=== PATIENT | male | born 1955 | race Caucasian/White ===

== ENCOUNTER 2020-01-14 12:33 | Inpatient (IN) | payer OTHER ==
[~2020-01-14] VITALS: Ht 180.3 cm; Wt 80.8 kg
[2020-01-14] MEDS ORDERED: ONDANSETRON HCL 4 MG/2 ML VIAL IV ONE ×3 (13:00→17:15)
[2020-01-14] MEDS ORDERED: MORPHINE SULFATE 4 MG/ML SYR/VIAL IV ONE ×2 (13:00→16:45)
[2020-01-14 15:41] LABS: Basophils # (auto) 0 10 ^3/uL (0-0.2); Basophils % (auto) 0.4 % (0.0-2.0); Eosinophils # (auto) 0.1 10 ^3/uL (0-0.8); Eosinophils % (auto) 1.2 % (0.0-7.0); Hematocrit 37.4 % (41.0-53.0); Hemoglobin 12.6 g/dL (13.5-17.5); Lymphocytes # (auto) 3.2 10 ^3/uL (0.4-5.4); Lymphocytes % (auto) 27.3 % (10.0-50.0); Mean Corpuscular Hemoglobin 28.3 pg (28.0-32.0); Mean Corpuscular Hgb Conc. 33.7 g/dL (32.0-36.0); Mean Corpuscular Volume 83.8 fL (80.0-100.0); Monocytes % (auto) 8.1 % (0.0-12.0); Neutrophils # (auto) 7.5 10 ^3/uL (1.6-8.6); Nucleated Red Blood Cells % 0.1 %; Platelet Count (auto) 254 10^3/uL (140-450); Red Blood Cells 4.46 10^6/uL (4.5-5.90); Red Cell Distribution Width 14.2 % (11.8-14.3); White Blood Cell 11.8 10^3/uL (4.4-10.8)
[2020-01-14 15:59] LABS: Albumin 3.7 g/dL (3.4-5.0); Calcium 9.1 mg/dL (8.5-10.1); Magnesium 2.2 mg/dL (1.6-2.6)
[2020-01-14 16:01] LABS: BUN/Creatinine Ratio 18.6
[2020-01-14 16:06] LABS: Bilirubin, Total 0.5 mg/dL (0.2-1.0); Total Protein 7.7 g/dL (6.4-8.2)
[2020-01-14 16:32] LABS: Potassium 2.5 mmol/L (3.5-5.1)
[2020-01-14] MEDS ORDERED: HEPARIN DRIP/D5W 100UNITS/ML 250 ML IV SCH (16:38)
[2020-01-14] MEDS ORDERED: MORPHINE SULF INJ 2 MG/ML SYRINGE 1ML IV PRN (16:45)
[2020-01-14] MEDS ORDERED: POTASSIUM CHL 20MEQ/100ML 100 ML IV ONE (16:45)
[2020-01-14] MEDS ORDERED: NITROGLYCERIN 0.4 MG SL TAB SL PRN (16:45)
[2020-01-14] MEDS ORDERED: HEPARIN SODIUM (PORCINE) 5000 UNITS/ML 1ML VIAL IV ONE (16:45)
[2020-01-14] MEDS ORDERED: MORPHINE SULF INJ 2 MG/ML SYRINGE 1ML IV ONE (17:15)
[2020-01-14] MEDS ORDERED: CLOPIDOGREL BISULFATE 75 MG TAB PO ONE (17:15)
[2020-01-14] MEDS ORDERED: ACETAMINOPHEN 500 MG TAB PO PRN (17:30)
[2020-01-14] MEDS ORDERED: POTASSIUM EFFERVESENT TAB 25 MEQ GT ONE (17:30)
[2020-01-14] MEDS ORDERED: DEXTROSE (50%) 50ML SYRG IV PRN (17:30)
[2020-01-14] MEDS ORDERED: SODIUM CHLORIDE 0.9% 1,000 ML IV ONE (17:30)
[2020-01-14] MEDS ORDERED: traMADol HCL 50 MG TAB PO PRN (17:30)
[2020-01-14] MEDS ORDERED: NITROGLYCERIN 50MG/250ML 250 ML IV SCH (17:30)
[2020-01-14 18:40] LABS: INR 1.01 (0.9-1.15); Partial Thromboplastin Time 25.9 sec (23.0-31.2)
[2020-01-14] MEDS: SOD CHL 0.9%/ KCL 40MEQ 1,000 ML IV SCH (20:02)
[2020-01-14] MEDS: MORPHINE SULF INJ 2 MG/ML SYRINGE 1ML IV PRN (21:10)
[2020-01-14] MEDS: ACCU-CHEK COMFORT CURVE STRIP VI SCH (22:00)
[2020-01-14] MEDS ORDERED: METOPROLOL TARTRATE 25 MG TAB PO SCH (22:00)
[2020-01-14] MEDS ORDERED: PREG100C PO (22:25)
[2020-01-14] MEDS ORDERED: HYDR-531 PO (22:26)
[2020-01-14] MEDS ORDERED: FURO1TAB32 PO (22:26)
[2020-01-14] MEDS ORDERED: HYDROcodone-ACET 10/325MG TAB PO ONE (23:45)
[2020-01-14] MEDS ORDERED: PREGABALIN 25 MG CAP PO ONE (23:45)
[2020-01-15 01:47] LABS: INR 1.06 (0.9-1.15)
[2020-01-15] MEDS: SOD CHL 0.9%/ KCL 40MEQ 1,000 ML IV SCH (03:10)
[2020-01-15] MEDS: PREGABALIN 25 MG CAP PO SCH ×3 (05:54→21:17)
[2020-01-15] MEDS: ACCU-CHEK COMFORT CURVE STRIP VI SCH ×4 (06:44→22:00)
[2020-01-15 07:11] LABS: Basophils # (auto) 0 10 ^3/uL (0-0.2); Basophils % (auto) 0.2 % (0.0-2.0); Eosinophils # (auto) 0.2 10 ^3/uL (0-0.8); Eosinophils % (auto) 1.3 % (0.0-7.0); Hematocrit 37.1 % (41.0-53.0); Hemoglobin 12.4 g/dL (13.5-17.5); Lymphocytes # (auto) 2.8 10 ^3/uL (0.4-5.4); Lymphocytes % (auto) 19.4 % (10.0-50.0); Mean Corpuscular Hemoglobin 28.3 pg (28.0-32.0); Mean Corpuscular Hgb Conc. 33.4 g/dL (32.0-36.0); Mean Corpuscular Volume 84.8 fL (80.0-100.0); Monocytes # (auto) 0.9 10 ^3/uL (0-1.3); Monocytes % (auto) 6.5 % (0.0-12.0); Neutrophils # (auto) 10.4 10 ^3/uL (1.6-8.6); Neutrophils % (auto) 72.6 % (37.0-80.0); Platelet Count (auto) 235 10^3/uL (140-450); Red Blood Cells 4.38 10^6/uL (4.5-5.90); Red Cell Distribution Width 14.3 % (11.8-14.3); White Blood Cell 14.4 10^3/uL (4.4-10.8)
[2020-01-15 07:33] LABS: Albumin 3.5 g/dL (3.4-5.0); Anion Gap 6 (5-15); Blood Urea Nitrogen 22 mg/dL (7-18); Calcium 8.5 mg/dL (8.5-10.1); Carbon Dioxide 33 mmol/L (21-32); Chloride 93 mmol/L (98-107); Glucose 154 mg/dL (74-106); Potassium 3.1 mmol/L (3.5-5.1); Sodium 132 mmol/L (136-145)
[2020-01-15 07:41] LABS: Alanine Aminotransferase 63 U/L (16-61); Alkaline Phosphatase 44 U/L (45-117); Aspartate Aminotransferase 194 U/L (15-37); BUN/Creatinine Ratio 18.3; Bilirubin, Total 0.5 mg/dL (0.2-1.0); Cholesterol 208 mg/dL (< 200); GFR African American 79 mL/min; GFR Non-African American 65 mL/min; HDL Cholesterol 31 mg/dL (40-59); Total Protein 7.1 g/dL (6.4-8.2); Triglycerides 502 mg/dL (< 150)
[2020-01-15] MEDS ORDERED: LIDOCAINE 2%HCL (LOCAL ANESTH.) INJ 20ML MDV ONE (08:16)
[2020-01-15] MEDS ORDERED: IOHEXOL 350 MG/ML 100ML IJ ONE (08:17)
[2020-01-15] MEDS ORDERED: ANGIOMAX 250 MG VIAL IV ONE (08:34)
[2020-01-15] MEDS ORDERED: ATROPINE SULF 1 MG/10ml SYR ONE (08:34)
[2020-01-15] MEDS ORDERED: MIDAZOLAM HCL 1MG/1ML-2 ML VIAL ONE (08:35)
[2020-01-15] MEDS ORDERED: fentaNYL CITRATE 100 MCG/2 ML VL ONE (08:35)
[2020-01-15] MEDS ORDERED: EPINEPHrine HCL 1 MG/10 ML SYRG ONE (08:35)
[2020-01-15] MEDS ORDERED: SODIUM CHL 0.9% 0 ML ONE (08:35)
[2020-01-15] MEDS ORDERED: EPTIFIBATIDE INJ (2MG/ML) 10ML VIAL IV ONE (08:36)
[2020-01-15] MEDS ORDERED: ACETAMINOPHEN 500 MG TAB PO PRN (09:45)
[2020-01-15] MEDS ORDERED: HYDROcodone-ACET 5/325MG TAB PO PRN (09:45)
[2020-01-15] MEDS ORDERED: NITROGLYCERIN 0.4 MG SL TAB SL PRN (09:45)
[2020-01-15] MEDS ORDERED: MORPHINE SULF INJ 2 MG/ML SYRINGE 1ML IV PRN (09:45)
[2020-01-15] MEDS ORDERED: CLOPIDOGREL BISULFATE 75 MG TAB ONE (09:57)
[2020-01-15] MEDS: RIVAROXABAN 10 MG TAB PO SCH ×2 (10:00→17:44)
[2020-01-15] MEDS: CARVEDILOL 12.5 MG TAB PO SCH ×2 (10:00→21:18)
[2020-01-15] MEDS: LISINOPRIL 5 MG TAB PO SCH (10:00)
[2020-01-15] MEDS: CLOPIDOGREL BISULFATE 75 MG TAB PO SCH (10:00)
[2020-01-15] MEDS: POTASSIUM CHL 20MEQ/100ML 100 ML IV SCH ×2 (10:30→12:58)
[2020-01-15] MEDS: HYDROcodone-ACET 10/325MG TAB PO SCH ×2 (11:40→21:18)
[2020-01-15] MEDS ORDERED: AZITHROMYCIN 250 MG TAB PO ONE (12:00)
[2020-01-15] MEDS ORDERED: DEXTROSE (50%) 50ML SYRG IV PRN (12:00)
[2020-01-15] MEDS ORDERED: METO2.5T11 PO (12:11)
[2020-01-15] MEDS ORDERED: SPIR25TA8 PO (12:11)
[2020-01-15] MEDS: ASPirin 81 mg TAB PO SCH (13:04)
[2020-01-15] MEDS: guaiFENesin-DM 100/10mg/5ml SYR PO SCH ×3 (13:05→21:16)
[2020-01-15] MEDS: MORPHINE SULF INJ 2 MG/ML SYRINGE 1ML IV PRN ×2 (14:16→20:06)
--- NOTE | 2020-01-15 15:20 | NUR ---
01/15/20 Mary Spoke with Camille wallis at [place] and gave in patient stay authorization for 01/19/20 @[facility] #[id number]
--- NOTE | 2020-01-15 15:40 | NUR ---
Report received MICHEAL VAZQUEZ brought to bed 270A following Left Cardiac catheterization, on bus monitor and portable oxygen. Patient transferred to unit bed, connected to systems coordinator and oxygen. Catheterization site assessed for any bleeding, redness or swelling. Pedal pulses on affected leg assessed for positive tissue perfusion. Patient instructed on need to notify staff immediately if any pain, burning or wetness to site, and any lower back pain. Patient educated on new cardiac medications. All questions and concerns addressed, patient verbalized understanding of all education and instruction.
[2020-01-15 16:00] VITALS: BP 95/69
--- NOTE | 2020-01-15 16:00 | NUR ---
RN Communication Per MD Lawrence BMP labs to be drawn at 1800. Order has been placed in [facility]. Per if Potassium levels are less than 3.5 place order for 25 meq Potassium effervescent tablet PO one time order.
[2020-01-15] MEDS: InsuLIN REG 1unit/0.01ml Soln (100units/ml) SC SCH ×2 (17:45→21:42)
[2020-01-15] MEDS: FUROSEMIDE 40 MG/4 ML VIAL IV SCH (17:45)
--- NOTE | 2020-01-15 19:25 | NUR ---
Opening note Assumed care of patient, Patient is alert and orientated x4. Bed locked in lowest position, Side rails up x2. Patient is resting in bed. Patient states he has SOB. Patent is on 4L nasal canula, saturation is 93%. Call light within reach, will continue to monitor.
--- NOTE | 2020-01-15 20:00 | NUR ---
Checked right groin dressing Dressing to right groin is dry and intact. No blood or swelling noted at site. Will continue to monitor.
[2020-01-15 20:25] LABS: BUN/Creatinine Ratio 15.7; Calcium 8.1 mg/dL (8.5-10.1)
[2020-01-15] MEDS ORDERED: POTASSIUM EFFERVESENT TAB 25 MEQ PO ONE (20:45)
[2020-01-15] MEDS: SPIRONOLACTONE 25 MG TAB PO SCH (21:17)
--- NOTE | 2020-01-15 22:00 | NUR ---
Joy Hospitalist Joy hospitalist Patient has SOB requesting breathing treatments. Assessed patient, patient has crackles, on 4L nasal canula saturation 94% Patient states he has been demanding breathing treatments and nothing has been done. Reassess blood pressure 100/55. Hr 92. Awaiting call back. Will continue to monitor.
[2020-01-15 22:10] VITALS: BP 88/64
--- NOTE | 2020-01-15 22:35 | NUR ---
Hospitalist paged back New order received, will follow through with orders. Call light within reach, Will continue to monitor.
[2020-01-15] MEDS: ALBUTEROL SULF 2.5 MG/0.5ML(0.5%) NEB SOLN NEB PRN (22:51)
--- NOTE | 2020-01-15 22:52 | NUR ---
RT at bedside. RT giving breathing treatment at this time. Will continue to monitor.
[2020-01-15 23:00] VITALS: BP 94/62
--- NOTE | 2020-01-15 23:00 | NUR ---
SOB relieved Patient received breathing treatment. No SOB or distress noted at this time. Patient is very tired and wants to go to sleep now. Patient states "finally got relief and can breath better." No other symptoms reported. Call light with in reach, Will continue to monitor.
[2020-01-16 01:24] VITALS: BP 94/58
--- NOTE | 2020-01-16 01:25 | NUR ---
Patient rounding Patient is asleep in bed. Chest is evenly rising, no sob or signs of distress noted. Will continue to monitor.
--- NOTE | 2020-01-16 01:45 | NUR ---
Patient requesting sleeping pill Patient states he slept for a while. but needs to get better sleep, wants his sleeping pill. Will medicate per md orders. No sob or distress noted at this time. Call light within reach, Will continue to monitor.
[2020-01-16] MEDS: TEMAZEPAM 15 MG CAP PO PRN (01:46)
[2020-01-16 05:02] VITALS: BP 96/63
--- NOTE | 2020-01-16 05:25 | NUR ---
Family called After password verification patients daughter Davina called for an update. All questions answered. Will continue to monitor patient.
--- NOTE | 2020-01-16 06:12 | NUR ---
RESPIRATORY NOTE: HR 92, RR 18, SPO2 96% ON 3 L NC, BS CLEAR AND DIMINISHED. PRN MED NEB TX NOT INDICATED AT THIS TIME.NO SIGNS OR SYMPTOMS OF RESPIRATORY DISTRESS NOTED. RN AT BEDSIDE.
[2020-01-16] MEDS: FUROSEMIDE 40 MG/4 ML VIAL IV SCH ×2 (06:22→18:02)
[2020-01-16] MEDS: guaiFENesin-DM 100/10mg/5ml SYR PO SCH ×4 (06:23→21:41)
[2020-01-16] MEDS: PREGABALIN 25 MG CAP PO SCH ×3 (06:23→21:40)
[2020-01-16] MEDS: ACCU-CHEK COMFORT CURVE STRIP VI SCH ×4 (06:26→21:41)
[2020-01-16] MEDS: InsuLIN REG 1unit/0.01ml Soln (100units/ml) SC SCH ×4 (07:03→21:45)
[2020-01-16 07:04] LABS: Basophils # (auto) 0 10 ^3/uL (0-0.2); Basophils % (auto) 0.2 % (0.0-2.0); Eosinophils # (auto) 0 10 ^3/uL (0-0.8); Hematocrit 35.5 % (41.0-53.0); Hemoglobin 11.9 g/dL (13.5-17.5); Lymphocytes # (auto) 1.9 10 ^3/uL (0.4-5.4); Lymphocytes % (auto) 9.9 % (10.0-50.0); Mean Corpuscular Hemoglobin 28.7 pg (28.0-32.0); Mean Corpuscular Hgb Conc. 33.4 g/dL (32.0-36.0); Mean Corpuscular Volume 85.9 fL (80.0-100.0); Monocytes # (auto) 1.6 10 ^3/uL (0-1.3); Monocytes % (auto) 8.5 % (0.0-12.0); Neutrophils # (auto) 15.4 10 ^3/uL (1.6-8.6); Neutrophils % (auto) 81.4 % (37.0-80.0); Platelet Count (auto) 220 10^3/uL (140-450); Red Blood Cells 4.14 10^6/uL (4.5-5.90); Red Cell Distribution Width 14.7 % (11.8-14.3); White Blood Cell 18.9 10^3/uL (4.4-10.8)
[2020-01-16 07:16] LABS: Albumin 3.4 g/dL (3.4-5.0); Calcium 8.3 mg/dL (8.5-10.1); Potassium 3.2 mmol/L (3.5-5.1)
--- NOTE | 2020-01-16 07:20 | NUR ---
Opening note Assumed care of patient, Patient is alert and orientated x4. Bed locked in lowest position, Side rails up x2. Patient is resting in bed. Patient states he has SOB. Patent is on 4L nasal canula, saturation is 95%. Call light within reach, will continue to monitor.
--- NOTE | 2020-01-16 07:21 | NUR ---
Closing note endorsed care to day shift RN
[2020-01-16 07:51] LABS: BUN/Creatinine Ratio 18.5; Bilirubin, Total 1.2 mg/dL (0.2-1.0)
--- NOTE | 2020-01-16 07:55 | NUR ---
Critical Troponin Critical troponin of 58.70 ng/mL received. Hospitalist was paged and made aware at this time. No new orders received.
[2020-01-16 09:00] VITALS: BP_SYST 110; BP_SYST 97; BP_DIAS 82; BP_DIAS 89
[2020-01-16] MEDS ORDERED: metOLazone 5 MG TAB PO SCH (10:00)
[2020-01-16] MEDS: CARVEDILOL 12.5 MG TAB PO SCH (10:00)
[2020-01-16] MEDS ORDERED: AZITHROMYCIN 250 MG TAB PO SCH (10:00)
[2020-01-16] MEDS: ASPirin 81 mg TAB PO SCH (10:14)
[2020-01-16] MEDS: HYDROcodone-ACET 10/325MG TAB PO SCH ×2 (10:14→21:40)
[2020-01-16] MEDS: LISINOPRIL 5 MG TAB PO SCH (10:15)
[2020-01-16] MEDS: CLOPIDOGREL BISULFATE 75 MG TAB PO SCH (10:15)
--- NOTE | 2020-01-16 10:15 | NUR ---
Daily weight Patient weighted at this time by bed after it was Zeroed out. Weight at this time 194 lbs.
[2020-01-16] MEDS ORDERED: metOLazone 5 MG TAB PO ONE (11:15)
[2020-01-16] MEDS ORDERED: NITR0.4D3 TD (11:17)
[2020-01-16] MEDS ORDERED: DOCU-94 PO (11:17)
[2020-01-16] MEDS ORDERED: POTA10TA51 PO (11:17)
[2020-01-16] MEDS ORDERED: CARV25TA PO (11:17)
[2020-01-16] MEDS ORDERED: LISI2.5T47 PO (11:17)
[2020-01-16] MEDS: ALBUTEROL SULF 2.5 MG/0.5ML(0.5%) NEB SOLN NEB PRN (11:48)
[2020-01-16 12:50] VITALS: BP 98/62
--- NOTE | 2020-01-16 13:00 | NUR ---
Urine sample collected and sent via State system at this time.
[2020-01-16 13:52] LABS: Urine WBC None Seen /hpf (0 - 3)
[2020-01-16 14:06] LABS: Urine Bacteria NONE SEEN /hpf (None Seen); Urine Blood Negative /uL (Negative); Urine Hyaline Cast FEW /lpf (0 - 2); Urine Mucus FEW (None Seen); Urine Specific Gravity 1.021 (1.001-1.035)
[2020-01-16 14:11] LABS: Alcohol, Urine < 3.0 mg/dL (0-10); Amphetamine Screen, Urine NEGATIVE (NEGATIVE); Barbiturate Scree,Urine NEGATIVE (NEGATIVE); Benzodiazephine Screen, Urine POSITIVE (NEGATIVE); Cannabinoid Screen, Urine NEGATIVE (NEGATIVE); Cocaine Screen, Urine NEGATIVE (NEGATIVE); Opiate Scree,Urine POSITIVE (NEGATIVE); Phencyclidine Screen, Urine NEGATIVE (NEGATIVE)
[2020-01-16 16:48] VITALS: BP 111/64
--- NOTE | 2020-01-16 17:00 | NUR ---
Elevated temperature Patient running a low grade fever of 100.0 Fahrenheit. Cooling measured initiated at this time. Will reassess in an hour.
--- NOTE | 2020-01-16 18:40 | NUR ---
Re: fever Temperature reassessment was 99.8 Fahrenheit. Cooling measures still in place. Will continue to monitor. No additional interventions at this time. Addendum: 01/16/20 at 1841 by DEONTE SORIANO RN RN temperature reassessed at 1810
--- NOTE | 2020-01-16 19:00 | NUR ---
Respiratory note: ASSESSMENT FOR PRN MED NEB TX, HR 95, SPO2 95% ON 2L NC, RR 20, BS DIMINISHED. PT IN NO RESPIRATORY DISTRESS, MED NEB TX NOT INDICATED. PT AWARE TO HAVE TO RT PAGED OF NEEDED, WILL CONTINUE TO MONITOR.
--- NOTE | 2020-01-16 19:20 | NUR ---
Opening note assumed care of patient patient is alert and orientated x4. no sob or distress noted at this time. Bed locked in lowest position, side rails up x2. poc reviewed, call light within reach will continue to monitor.
[2020-01-16] MEDS: SPIRONOLACTONE 25 MG TAB PO SCH (21:40)
[2020-01-16] MEDS: CARVEDILOL 3.125 MG TAB PO SCH (21:42)
[2020-01-16 22:07] VITALS: BP 95/62
--- NOTE | 2020-01-16 23:40 | NUR ---
Rt paged Patient feels out of breath and requesting a breathing treatment. notified RT will continue care
--- NOTE | 2020-01-16 23:50 | NUR ---
RT at bedside Rt giving breathing treatment, patient states he feels better. will continue care
[2020-01-17 04:46] VITALS: BP 97/63
[2020-01-17 05:41] LABS: Basophils # (auto) 0 10 ^3/uL (0-0.2); Basophils % (auto) 0.1 % (0.0-2.0); Eosinophils # (auto) 0 10 ^3/uL (0-0.8); Eosinophils % (auto) 0.1 % (0.0-7.0); Hematocrit 32.4 % (41.0-53.0); Hemoglobin 11.2 g/dL (13.5-17.5); Lymphocytes # (auto) 2.6 10 ^3/uL (0.4-5.4); Lymphocytes % (auto) 13.9 % (10.0-50.0); Mean Corpuscular Hemoglobin 29.1 pg (28.0-32.0); Mean Corpuscular Hgb Conc. 34.6 g/dL (32.0-36.0); Mean Corpuscular Volume 84.1 fL (80.0-100.0); Monocytes # (auto) 1.2 10 ^3/uL (0-1.3); Monocytes % (auto) 6.3 % (0.0-12.0); Neutrophils # (auto) 15.1 10 ^3/uL (1.6-8.6); Neutrophils % (auto) 79.6 % (37.0-80.0); Platelet Count (auto) 210 10^3/uL (140-450); Red Blood Cells 3.85 10^6/uL (4.5-5.90); Red Cell Distribution Width 14.7 % (11.8-14.3)
[2020-01-17] MEDS: PREGABALIN 25 MG CAP PO SCH ×3 (05:55→22:00)
[2020-01-17] MEDS: FUROSEMIDE 40 MG/4 ML VIAL IV SCH (05:55)
[2020-01-17] MEDS: ACCU-CHEK COMFORT CURVE STRIP VI SCH ×4 (05:56→21:49)
[2020-01-17 05:57] LABS: Calcium 8.7 mg/dL (8.5-10.1)
[2020-01-17 05:59] LABS: BUN/Creatinine Ratio 25.6
[2020-01-17] MEDS: guaiFENesin-DM 100/10mg/5ml SYR PO SCH (06:09)
[2020-01-17] MEDS: InsuLIN REG 1unit/0.01ml Soln (100units/ml) SC SCH ×4 (06:09→22:23)
[2020-01-17 06:13] LABS: Potassium 2.5 mmol/L (3.5-5.1)
--- NOTE | 2020-01-17 06:20 | NUR ---
critical lab value critical lab value potassium 2.5. will inform hospitalist continue care
--- NOTE | 2020-01-17 06:30 | NUR ---
Paged hospitalist Paged hospitalist, awaiting call back. continue care
--- NOTE | 2020-01-17 07:05 | NUR ---
Hospitalist paged back new orders received regarding potassium, will carry out new orders.
[2020-01-17] MEDS ORDERED: POTASSIUM CHL 20 Meq TABLET PO ONE ×2 (07:15→10:45)
--- NOTE | 2020-01-17 07:15 | NUR ---
CLOSING NOTE endorsed care to day shift RN
[2020-01-17 09:15] VITALS: BP 110/74
[2020-01-17] MEDS: CLOPIDOGREL BISULFATE 75 MG TAB PO SCH (09:59)
[2020-01-17] MEDS: HYDROcodone-ACET 10/325MG TAB PO SCH (09:59)
[2020-01-17] MEDS: ASPirin 81 mg TAB PO SCH (09:59)
[2020-01-17] MEDS: metOLazone 5 MG TAB PO SCH (10:00)
[2020-01-17] MEDS: CARVEDILOL 3.125 MG TAB PO SCH ×2 (10:00→22:00)
[2020-01-17] MEDS ORDERED: DOCUSATE SOD 100 MG CAP PO PRN (10:45)
[2020-01-17] MEDS ORDERED: cefTRIAXone 1GM/50ML D5W 50 ML IV ONE (10:45)
[2020-01-17] MEDS ORDERED: DOCUSATE SOD 100 MG CAP PO ONE (10:45)
[2020-01-17] MEDS: guaiFENesin-DM 100/10mg/5ml SYR PO PRN (11:08)
--- NOTE | 2020-01-17 12:41 | NUR ---
Nutrition Assessment Notes Please refer to link for full assessment notes. Est Energy needs: 4535-8333 kcals (20-23 kcal/kgBW) Est Protein needs: 64-80 gms/day (0.8-1.0 gm/kgBW) Will continue to monitor and reassess prn. Addendum: 01/17/20 at [address] Amended: Links added.
[2020-01-17 13:00] VITALS: BP 103/56
[2020-01-17] MEDS: Ensure HIGH Protein Chocolate 8oz Bottle PO SCH ×2 (13:59→17:28)
[2020-01-17 16:06] VITALS: BP 90/46
--- NOTE | 2020-01-17 17:00 | NUR ---
Direct Admit Note MICHEAL VAZQUEZ admitted to Telemetry/MS unit as a direct admit per MD order. Patient oriented to EFRA OLIVEROS, primary RN, unit, room, bed, and unit policies regarding patient care and visiting hours. Patient now on continuous telemetry monitoring, tele box # 62 and telemetry reading on arrival to unit is . Patient placed on bedside oxygen, weighed by bed scale and encouraged to call if they need something. All questions and concerns addressed, patient verbalized understanding. MD notified of patients arrival and admit orders received. Addendum: 01/17/20 at 1730 by EFRA OLIVEROS RN wrong patient
--- NOTE | 2020-01-17 19:45 | NUR ---
Opening Shift Note Assumed care of patient, awake and alert. No S/S of distress/SOB or pain noted. Patient requested breathing treatment, to page RT. Instructed on POC and to call for assist PRN. Bed is in lowest locked position with bed rails up x2 and call light is within reach of the patient.
--- NOTE | 2020-01-17 20:03 | NUR ---
I WAS PAGED TO BEDSIDE FOR PT REQUESTING PRN MED NEB TX. NO DISTRESS NOTED. PRN TX ADMINISTERED W/ NO ISSUES. Addendum: 01/17/20 at 2037 by HAUNG KAUR RT Amended: Links added.
[2020-01-17] MEDS: ALBUTEROL SULF 2.5 MG/0.5ML(0.5%) NEB SOLN NEB PRN (20:35)
[2020-01-17] MEDS: SPIRONOLACTONE 25 MG TAB PO SCH (22:00)
[2020-01-17 22:03] VITALS: BP 101/68
[2020-01-17] MEDS: PROMETHAZINE HCL 25 MG/ML 1ML IV PRN (22:19)
--- NOTE | 2020-01-17 22:49 | NUR ---
PATIENT REFUSED EVENING MEDICATIONS: Patient refused evening medications stating "Im feeling nauseous I dont think I can keep any of these medications down." Gave patient nausea medication and came back to attempt again to give patient medications. Patient was only able to take Aldactone PO but refused the rest of PO medications at this time stating "I wont be able to keep them down. Im good for tonight." Educated the patient about taking medication but refused at this time.
[2020-01-18] MEDS: ALBUTEROL SULF 2.5 MG/0.5ML(0.5%) NEB SOLN NEB PRN (02:57)
[2020-01-18 05:06] VITALS: BP 110/73
[2020-01-18 05:29] LABS: Basophils # (auto) 0.1 10 ^3/uL (0-0.2); Basophils % (auto) 0.6 % (0.0-2.0); Eosinophils # (auto) 0 10 ^3/uL (0-0.8); Eosinophils % (auto) 0.3 % (0.0-7.0); Hematocrit 32.5 % (41.0-53.0); Hemoglobin 11.1 g/dL (13.5-17.5); Lymphocytes # (auto) 2.7 10 ^3/uL (0.4-5.4); Lymphocytes % (auto) 15.5 % (10.0-50.0); Mean Corpuscular Hemoglobin 28.9 pg (28.0-32.0); Mean Corpuscular Hgb Conc. 34.1 g/dL (32.0-36.0); Mean Corpuscular Volume 84.6 fL (80.0-100.0); Monocytes % (auto) 5.8 % (0.0-12.0); Neutrophils # (auto) 13.3 10 ^3/uL (1.6-8.6); Neutrophils % (auto) 77.8 % (37.0-80.0); Nucleated Red Blood Cells % 0.1 %; Platelet Count (auto) 218 10^3/uL (140-450); Red Blood Cells 3.85 10^6/uL (4.5-5.90); Red Cell Distribution Width 14.4 % (11.8-14.3); White Blood Cell 17.1 10^3/uL (4.4-10.8)
[2020-01-18 05:47] LABS: Calcium 9.4 mg/dL (8.5-10.1); Magnesium 2.6 mg/dL (1.6-2.6)
[2020-01-18] MEDS: PREGABALIN 25 MG CAP PO SCH ×3 (06:00→22:00)
[2020-01-18] MEDS: FUROSEMIDE 40 MG/4 ML VIAL IV SCH (06:17)
[2020-01-18] MEDS: ACCU-CHEK COMFORT CURVE STRIP VI SCH ×4 (06:17→22:00)
[2020-01-18] MEDS: PROMETHAZINE HCL 25 MG/ML 1ML IV PRN ×2 (06:25→23:43)
[2020-01-18] MEDS: InsuLIN REG 1unit/0.01ml Soln (100units/ml) SC SCH ×4 (06:37→22:00)
[2020-01-18] MEDS: Ensure HIGH Protein Chocolate 8oz Bottle PO SCH ×3 (08:13→17:14)
[2020-01-18 08:40] VITALS: BP 104/71
[2020-01-18] MEDS ORDERED: POTASSIUM CHL 20 Meq TABLET PO ONE (08:45)
[2020-01-18] MEDS: metOLazone 5 MG TAB PO SCH (09:31)
[2020-01-18] MEDS: CLOPIDOGREL BISULFATE 75 MG TAB PO SCH (09:31)
[2020-01-18] MEDS: cefTRIAXone 1GM/50ML D5W 50 ML IV SCH (09:31)
[2020-01-18] MEDS: CARVEDILOL 3.125 MG TAB PO SCH ×2 (09:32→22:00)
[2020-01-18] MEDS: ASPirin 81 mg TAB PO SCH (09:32)
[2020-01-18] MEDS ORDERED: POTASSIUM CHLORIDE 40 MEQ, LIDOCAINE 1% (LOCAL ANESTH.) 4 ML in SODIUM CHL 0.9% 100 ML IV ONE (11:30)
--- NOTE | 2020-01-18 12:00 | NUR ---
Spoke to [employer] regarding Ensure has not been sent, per [employer] cannot send because patient is on CCHO.
[2020-01-18 13:00] VITALS: BP 104/66
[2020-01-18] MEDS: DOBUTamine 1000MCG/ML 250 ML IV SCH (13:49)
--- NOTE | 2020-01-18 14:02 | NUR ---
ASSESSED PT FOR PRN MED NEB, PT RESTING, SITTING ON CHAIR ON 1L NC WITH NO DISTRESS NOTED. NO INDICATION FOR PRN MED NEB AT THIS TIME.
[2020-01-18 16:57] VITALS: BP 96/70
[2020-01-18 19:01] VITALS: BP 96/70
--- NOTE | 2020-01-18 19:45 | NUR ---
Opening Shift Note Assumed care of patient, awake and alert. No S/S of distress/SOB or pain noted, sitting in chair. Instructed on POC and to call for assist PRN. Call light is within reach of the patient.
[2020-01-18] MEDS: guaiFENesin-DM 100/10mg/5ml SYR PO PRN (19:48)
[2020-01-18 22:00] VITALS: BP 110/67
[2020-01-18] MEDS: SPIRONOLACTONE 25 MG TAB PO SCH (22:29)
[2020-01-19] MEDS: HYDROcodone-ACET 10/325MG TAB PO PRN ×2 (02:33→22:27)
[2020-01-19 05:00] VITALS: BP 104/71
[2020-01-19 06:38] LABS: Basophils # (auto) 0 10 ^3/uL (0-0.2); Basophils % (auto) 0.1 % (0.0-2.0); Eosinophils # (auto) 0 10 ^3/uL (0-0.8); Eosinophils % (auto) 0.2 % (0.0-7.0); Hemoglobin 11.1 g/dL (13.5-17.5); Lymphocytes # (auto) 1.9 10 ^3/uL (0.4-5.4); Lymphocytes % (auto) 14.6 % (10.0-50.0); Mean Corpuscular Hemoglobin 29.3 pg (28.0-32.0); Mean Corpuscular Hgb Conc. 34.7 g/dL (32.0-36.0); Mean Corpuscular Volume 84.2 fL (80.0-100.0); Monocytes # (auto) 0.8 10 ^3/uL (0-1.3); Monocytes % (auto) 6.3 % (0.0-12.0); Neutrophils % (auto) 78.8 % (37.0-80.0); Nucleated Red Blood Cells % 0.1 %; Platelet Count (auto) 225 10^3/uL (140-450); Red Cell Distribution Width 14.9 % (11.8-14.3); White Blood Cell 12.7 10^3/uL (4.4-10.8)
[2020-01-19] MEDS: PREGABALIN 25 MG CAP PO SCH ×3 (06:59→22:26)
[2020-01-19] MEDS: ACCU-CHEK COMFORT CURVE STRIP VI SCH ×4 (06:59→22:26)
[2020-01-19] MEDS: FUROSEMIDE 40 MG/4 ML VIAL IV SCH ×2 (07:00→11:45)
[2020-01-19 07:04] LABS: BUN/Creatinine Ratio 28.9
[2020-01-19] MEDS: InsuLIN REG 1unit/0.01ml Soln (100units/ml) SC SCH ×4 (07:06→22:00)
--- NOTE | 2020-01-19 07:10 | NUR ---
ASSESSED PT FOR PRN MED NEB. PT ON 1L NC WITH NO DISTRESS NOTED. NO INDICATION FOR PRN MED NEB AT THIS TIME.
[2020-01-19 07:14] LABS: Potassium 2.5 mmol/L (3.5-5.1)
--- NOTE | 2020-01-19 07:14 | NUR ---
Critical Lab Omi held, Paged hospitalist: Received call from lab stating patient had critical lab value of 2.5 potassium. Lasix held for AM due to contraindication of potassium lab value. Hospitalist paged at this time to report critical lab. To notify day shift nurse.
--- NOTE | 2020-01-19 07:15 | NUR ---
Closing note: Patient resting in bed with breaths even and unlabored. Notified of critical potassium lab value and notified that hospitalist had been paged and waiting for call back. Care endorsed to day shift nurse.
[2020-01-19] MEDS: Ensure HIGH Protein Chocolate 8oz Bottle PO SCH ×3 (08:00→18:00)
[2020-01-19 09:00] VITALS: BP 116/78
[2020-01-19] MEDS: cefTRIAXone 1GM/50ML D5W 50 ML IV SCH (09:05)
[2020-01-19] MEDS: guaiFENesin-DM 100/10mg/5ml SYR PO PRN ×2 (09:18→17:22)
[2020-01-19] MEDS: DOBUTamine 1000MCG/ML 250 ML IV SCH (09:18)
[2020-01-19] MEDS: ASPirin 81 mg TAB PO SCH (09:20)
[2020-01-19] MEDS: CARVEDILOL 3.125 MG TAB PO SCH ×2 (09:21→22:00)
[2020-01-19] MEDS: CLOPIDOGREL BISULFATE 75 MG TAB PO SCH (09:21)
[2020-01-19] MEDS: POTASSIUM CHL 20MEQ/100ML 100 ML IV SCH ×2 (09:23→13:59)
[2020-01-19] MEDS ORDERED: POTASSIUM EFFERVESENT TAB 25 MEQ PO ONE (11:00)
[2020-01-19 13:00] VITALS: BP 116/56
--- NOTE | 2020-01-19 13:35 | NUR ---
01/19/20 5415 Received hard copy fax from [facility] giving in patient stay authorization for 01/20/20 @[facility] the [facility] #[id number]
[2020-01-19] MEDS ORDERED: POTASSIUM CHL 20MEQ/100ML 100 ML IV ONE (13:57)
[2020-01-19] MEDS: metOLazone 5 MG TAB PO SCH (14:27)
[2020-01-19 17:00] VITALS: BP 99/60
--- NOTE | 2020-01-19 19:05 | NUR ---
Opening Shift Note Assumed care of patient, awake and alert and oriented X4. No S/S of distress/SOB or pain noted. Instructed on POC and to call for assist PRN. Patient cant lay flat in bed, so he sits on a recliner, and sleeps there as well.
[2020-01-19 22:00] VITALS: BP 101/65
[2020-01-19] MEDS: SACUBITRIL-VALSARTAN 24mg/26mg TAB PO SCH (22:00)
[2020-01-19] MEDS: SPIRONOLACTONE 25 MG TAB PO SCH (22:26)
[2020-01-20] MEDS: TEMAZEPAM 15 MG CAP PO PRN (00:19)
[2020-01-20 05:00] VITALS: BP 103/62
[2020-01-20 06:08] LABS: Magnesium 3.1 mg/dL (1.6-2.6)
[2020-01-20 06:12] LABS: BUN/Creatinine Ratio 26.7; Potassium 2.7 mmol/L (3.5-5.1)
[2020-01-20] MEDS: ACCU-CHEK COMFORT CURVE STRIP VI SCH ×4 (06:24→21:59)
[2020-01-20] MEDS: PREGABALIN 25 MG CAP PO SCH ×3 (06:24→21:59)
[2020-01-20] MEDS: InsuLIN REG 1unit/0.01ml Soln (100units/ml) SC SCH ×4 (06:24→21:59)
[2020-01-20] MEDS: DOBUTamine 1000MCG/ML 250 ML IV SCH ×2 (06:24→18:47)
[2020-01-20] MEDS: FUROSEMIDE 40 MG/4 ML VIAL IV SCH ×2 (06:25→18:47)
--- NOTE | 2020-01-20 06:35 | NUR ---
Lab called with critical value K 2.7 called hospitalist for orders.
[2020-01-20] MEDS ORDERED: KCL 40 MEQ IV SCH (06:45)
[2020-01-20] MEDS ORDERED: SOD CHL IV SCH (06:45)
[2020-01-20] MEDS ORDERED: POTASSIUM CHL 20MEQ/100ML 100 ML IV SCH (07:15)
--- NOTE | 2020-01-20 08:00 | NUR ---
OPENING SHIFT NOTE ASSUMED CARE OF PATIENT AWAKE AND ALERT. NO S/S OF DISTRESS NOTED OR COMPLAINTS OF PAIN. PATIENT UPDATED ON POC FOR THE DAY AND ALL QUESTIONS ANSWERED. BED IS IN LOWEST, LOCKED POSITION WITH SIDE RAILS UP X2 AND CALL LIGHT WITHIN REACH. WILL CONTINUE TO MONITOR Q1H AND PRN.
[2020-01-20] MEDS: Ensure HIGH Protein Chocolate 8oz Bottle PO SCH ×3 (08:59→18:47)
[2020-01-20] MEDS: cefTRIAXone 1GM/50ML D5W 50 ML IV SCH (08:59)
[2020-01-20 09:00] VITALS: BP 98/63
[2020-01-20] MEDS: CARVEDILOL 3.125 MG TAB PO SCH ×2 (10:00→21:59)
[2020-01-20] MEDS: SACUBITRIL-VALSARTAN 24mg/26mg TAB PO SCH ×2 (10:00→21:58)
--- NOTE | 2020-01-20 10:28 | NUR ---
Respiratory note: PT ASSESSED FOR PRN TX. HR 81, RR 18, POX 97% ON IL NC, BS ARE CLEAR/DIMINISHED. NO SOB OR DISTRESS NOTED. PT NOTIFY TO CALL RT FOR TX.
[2020-01-20] MEDS ORDERED: POTASSIUM CHLORIDE 40 MEQ, LIDOCAINE 1% (LOCAL ANESTH.) 4 ML in SODIUM CHL 0.9% 100 ML IV ONE ×2 (10:30→14:30)
[2020-01-20] MEDS: ASPirin 81 mg TAB PO SCH (10:37)
[2020-01-20] MEDS: POTASSIUM EFFERVESENT TAB 25 MEQ PO SCH (10:38)
[2020-01-20] MEDS: metOLazone 5 MG TAB PO SCH (10:38)
[2020-01-20] MEDS: CLOPIDOGREL BISULFATE 75 MG TAB PO SCH (10:38)
[2020-01-20 13:00] VITALS: BP 95/62
--- NOTE | 2020-01-20 15:21 | NUR ---
Midline Placement: Patient educated on need for midline placement. All risks and benefits explained and all questions and concerns addresses prior to procedure. 4Fr 20cm midline inserted via right basilic vein using Ultrasound. Sterile technique utilized. Blood return obtained from th single lumen and flushed easily with NS using proper technique. Midline secured with saline lock; biodisc and occlusive dressing applied. Primary RN notified. Midline lot #[id number]. Internal length 20cm external length 0cm
--- NOTE | 2020-01-20 15:36 | NUR ---
Nutrition Followup Notes Pt wt is 79.9 kg Pt is with a CCHO 45g/Cardiac 2gNa diet, appetite is good aeb ave 80% PO intake over 5 meals per RN doc. Pt with no distress. Est Energy needs: 4874-9294 kcals (20-23 kcal/kgBW) Est Protein needs: 64-80 gms/day (0.8-1.0 gm/kgBW) Will continue to monitor and reassess prn. LABS: K 2.7 L, BUN 36 H, CR 1.35 H, GFR 57 L, GLUC 127 H, ALB 3.1 L GI: Pt had 1 BM on 01/18 per RN doc BS: 19 low risk Refer to wound assessment report for full details. PES: Altered nutrition related lab values r/t current medical condition aeb hypokalemia, elev RFTs, hyperglycemia Comments Will continue to monitor PO status, skin status, pertinent labs and weight trends. Will f/u in 3-5 days. 1) Continue to carefully monitor pt PO intake to meet at least 75% of meals 2) Continue current plan of care
[2020-01-20 17:00] VITALS: BP 108/74
--- NOTE | 2020-01-20 17:00 | NUR ---
AT BEDSIDE DR MORTON AT BEDSIDE DISCUSSING POC WITH PATIENT. PATIENT VERBALIZED UNDERSTANDING REGARDING VERY STRICT 1200ML FLUID RESTRICTION, ADMINISTRATION OF ENTRESTO, INCREASING DOSAGE OF DOBUTAMINE AND INCREASING FREQUENCY OF FUROSEMIDE INJECTION. PATIENT IS EXPECTED TO FOLLOW REGIMEN AND LOSE 5 POUNDS A DAY. CHAIR SCALE BROUGHT TO BEDSIDE FOR ACCURATE WEIGHTS. PATIENT IS CURRENTLY 83.9 KG.
--- NOTE | 2020-01-20 18:54 | NUR ---
Respiratory note: ASSESSMENT FOR PRN MED NEB TX, PT IN NO RESPIRATORY DISTRESS. HR 87, SPO2 94% ON ROOM AIR, RR 18, BS DIMINISHED. MED NEB TX NOT INDICATED AT THIS TIME. PT AWARE TO HAVE RT PAGED IF NEEDED, WILL CONTINUE TO MONITOR.
--- NOTE | 2020-01-20 19:30 | NUR ---
Opening Shift Note Assumed care of patient, awake and alertx4. No S/S of distress/SOB or pain. Dobutamin drip is at 23.97 mls/hr. Patient is aware of strict I and O as well as the fluid restriction. Call light is within reach, side rails up x2, bed is in the lowest position. Instructed on POC and to call for assist PRN, will continue to monitor for changes Q1hr and PRN.
[2020-01-20] MEDS: SPIRONOLACTONE 25 MG TAB PO SCH (21:58)
[2020-01-20] MEDS: HYDROcodone-ACET 10/325MG TAB PO PRN (21:59)
[2020-01-20 22:00] VITALS: BP 104/69
[2020-01-21] MEDS: DOBUTamine 1000MCG/ML 250 ML IV SCH ×3 (00:12→23:10)
[2020-01-21 05:00] VITALS: BP 86/62
[2020-01-21] MEDS: FUROSEMIDE 40 MG/4 ML VIAL IV SCH ×2 (06:13→18:00)
[2020-01-21] MEDS: PREGABALIN 25 MG CAP PO SCH ×3 (06:13→22:00)
[2020-01-21] MEDS: ACCU-CHEK COMFORT CURVE STRIP VI SCH ×4 (06:14→22:01)
[2020-01-21] MEDS: InsuLIN REG 1unit/0.01ml Soln (100units/ml) SC SCH ×4 (06:14→22:00)
[2020-01-21 06:46] LABS: BUN/Creatinine Ratio 23.4; Calcium 8.9 mg/dL (8.5-10.1)
[2020-01-21 06:59] LABS: Potassium 2.5 mmol/L (3.5-5.1)
--- NOTE | 2020-01-21 06:59 | NUR ---
CRITICAL LAB RECEIVED POTASSIUM 2.5
--- NOTE | 2020-01-21 07:13 | NUR ---
Endorsed care to dayshift RN She is aware of critical potassium lab.
[2020-01-21] MEDS: Ensure HIGH Protein Chocolate 8oz Bottle PO SCH ×3 (08:47→18:19)
[2020-01-21 09:13] VITALS: BP 85/60
[2020-01-21] MEDS: cefTRIAXone 1GM/50ML D5W 50 ML IV SCH (09:48)
[2020-01-21] MEDS: ASPirin 81 mg TAB PO SCH (09:48)
[2020-01-21] MEDS: metOLazone 5 MG TAB PO SCH (09:49)
[2020-01-21] MEDS: CLOPIDOGREL BISULFATE 75 MG TAB PO SCH (09:49)
[2020-01-21] MEDS: SACUBITRIL-VALSARTAN 24mg/26mg TAB PO SCH ×2 (09:49→22:00)
[2020-01-21] MEDS: POTASSIUM EFFERVESENT TAB 25 MEQ PO SCH (09:49)
[2020-01-21] MEDS: CARVEDILOL 3.125 MG TAB PO SCH ×2 (09:49→22:00)
[2020-01-21 12:26] VITALS: BP 87/53
[2020-01-21] MEDS ORDERED: POTASSIUM EFFERVESENT TAB 25 MEQ PO ONE (13:00)
--- NOTE | 2020-01-21 14:15 | NUR ---
PT ASSESSED FOR PRN MED NEB, PT ON RA WITH SPO2 90%, HR 80, RR 15 WITH CLEAR BS. NO DISTRESS NOTED. WILL CONTINUE TO MONITOR PT.
[2020-01-21 16:45] VITALS: BP 81/49
[2020-01-21 18:50] VITALS: BP 86/47
--- NOTE | 2020-01-21 19:25 | NUR ---
Opening Shift Note Assumed care of patient, awake and alert x4. No S/S of distress/SOB or pain. Dobutamine drip is infusing at 23.07mls/hr to the right upper arm midline. Call light is within reach, side rails up x2, bed is in the lowest position. Instructed on POC and to call for assist PRN, will continue to monitor for changes Q1hr and PRN.
[2020-01-21] MEDS: SPIRONOLACTONE 25 MG TAB PO SCH (21:59)
[2020-01-21 22:00] VITALS: BP 97/62
[2020-01-21] MEDS: POTASSIUM CHL 20 Meq TABLET PO SCH (22:00)
[2020-01-21] MEDS: MAGNESIUM OXIDE 400 MG TAB PO SCH (22:00)
[2020-01-21] MEDS: HYDROcodone-ACET 10/325MG TAB PO PRN (22:01)
[2020-01-22 05:00] VITALS: BP 116/60
--- NOTE | 2020-01-22 06:16 | NUR ---
Respiratory note: HR 82, RR 16, SPO2 95% ON RA, BS CLEAR. PRN MED NEB TX NOT INDICATED AT THIS TIME. NO SIGNS OR SYMPTOMS OF RESPIRATORY DISTRESS NOTED AT THIS TIME. RN AT BEDSIDE.
--- NOTE | 2020-01-22 06:30 | NUR ---
Daily weight Patient weighs 82.45 kg or 181.4 lbs. Yesterday he weighed 83.9kg which equals to 184.58 lbs. Weight lost equals 3.18 lbs.
[2020-01-22] MEDS: FUROSEMIDE 40 MG/4 ML VIAL IV SCH ×2 (06:34→17:55)
[2020-01-22] MEDS: InsuLIN REG 1unit/0.01ml Soln (100units/ml) SC SCH ×4 (06:34→22:00)
[2020-01-22] MEDS: ACCU-CHEK COMFORT CURVE STRIP VI SCH ×4 (06:34→22:00)
[2020-01-22] MEDS: PREGABALIN 25 MG CAP PO SCH ×3 (06:34→22:13)
[2020-01-22 06:52] LABS: Basophils # (auto) 0 10 ^3/uL (0-0.2); Basophils % (auto) 0.3 % (0.0-2.0); Eosinophils # (auto) 0.2 10 ^3/uL (0-0.8); Eosinophils % (auto) 2.1 % (0.0-7.0); Hematocrit 33.9 % (41.0-53.0); Hemoglobin 11.3 g/dL (13.5-17.5); Lymphocytes # (auto) 2.2 10 ^3/uL (0.4-5.4); Lymphocytes % (auto) 24.5 % (10.0-50.0); Mean Corpuscular Hemoglobin 28.4 pg (28.0-32.0); Mean Corpuscular Hgb Conc. 33.2 g/dL (32.0-36.0); Mean Corpuscular Volume 85.4 fL (80.0-100.0); Monocytes # (auto) 0.7 10 ^3/uL (0-1.3); Monocytes % (auto) 7.8 % (0.0-12.0); Neutrophils # (auto) 5.9 10 ^3/uL (1.6-8.6); Neutrophils % (auto) 65.3 % (37.0-80.0); Nucleated Red Blood Cells % 0.1 %; Platelet Count (auto) 264 10^3/uL (140-450); Red Blood Cells 3.97 10^6/uL (4.5-5.90); Red Cell Distribution Width 14.9 % (11.8-14.3)
[2020-01-22 07:08] LABS: BUN/Creatinine Ratio 20.4
[2020-01-22 07:38] LABS: Potassium 2.8 mmol/L (3.5-5.1)
[2020-01-22 08:58] VITALS: BP 87/55
--- NOTE | 2020-01-22 09:54 | NUR ---
DR. MORTON IN TO SEE PT. PER , OK TO GIVE BP MEDICATIONS WITH DECREASED BP
--- NOTE | 2020-01-22 10:20 | NUR ---
DR. HAMM IN TO SEE PT.
--- NOTE | 2020-01-22 10:45 | NUR ---
Called [facility], returning phone call from Fany motion study analyst, spoke with Fany gave verbal update on the patient, for possible transfer to [place] today. Gave contact information for the patient's MD, Dr Ku [phone] an have him paged.
[2020-01-22] MEDS ORDERED: POTASSIUM CHL 20 Meq TABLET PO ONE (11:00)
[2020-01-22] MEDS: POTASSIUM CHL 20 Meq TABLET PO SCH ×2 (11:31→22:13)
[2020-01-22] MEDS: DOBUTamine 1000MCG/ML 250 ML IV SCH ×2 (11:31→22:11)
[2020-01-22] MEDS: POTASSIUM EFFERVESENT TAB 25 MEQ PO SCH (11:33)
--- NOTE | 2020-01-22 11:45 | NUR ---
SPOKE TO EMILY KIM AT [facility] CASE UPDATE IN REGARDS TO Tx ALL QUESTIONS AND CONCERNS ADDRESSED.
--- NOTE | 2020-01-22 11:46 | NUR ---
01/22/20 1124 Faxed to [facility] face sheet, H&P,labs, med list, x-rays, progress notes, request for transfer to [facility]. Made Izaebla KIM at [facility] aware.
[2020-01-22] MEDS: CLOPIDOGREL BISULFATE 75 MG TAB PO SCH (11:48)
[2020-01-22] MEDS: SACUBITRIL-VALSARTAN 24mg/26mg TAB PO SCH ×2 (11:49→22:13)
[2020-01-22] MEDS: SPIRONOLACTONE 25 MG TAB PO SCH ×2 (11:49→22:12)
[2020-01-22] MEDS: CARVEDILOL 3.125 MG TAB PO SCH ×2 (11:49→22:00)
[2020-01-22] MEDS: ASPirin 81 mg TAB PO SCH (11:50)
[2020-01-22] MEDS: metOLazone 5 MG TAB PO SCH (11:50)
[2020-01-22] MEDS: MAGNESIUM OXIDE 400 MG TAB PO SCH ×2 (11:50→22:14)
[2020-01-22] MEDS: cefTRIAXone 1GM/50ML D5W 50 ML IV SCH (11:51)
[2020-01-22] MEDS: Ensure HIGH Protein Chocolate 8oz Bottle PO SCH ×3 (11:51→17:55)
[2020-01-22 13:00] VITALS: BP 135/58
--- NOTE | 2020-01-22 13:52 | NUR ---
PER EMILY KIM AT [facility] PT WILL NEED A RAPID COVID [address] MORTON AWARE OF MD-MD CALL FOR Tx
--- NOTE | 2020-01-22 14:00 | NUR ---
Received a call from Lilly at the [facility] and stated [facility] had called and requested a patient to be sent there after talking to Dr. Ku, requested clinicals on the patient be faxed to them.
--- NOTE | 2020-01-22 14:25 | NUR ---
Clinical packet faxed to [facility] transport center and called the floor and requested they do Covid rapid on the patient as requested by per [facility].
--- NOTE | 2020-01-22 14:29 | NUR ---
COVID 19 SPECIMEN COLLECTED, SENT TO LAB.
--- NOTE | 2020-01-22 16:26 | NUR ---
assessment Patient is a 64 year old male who is alert and oriented. Patients cognitive abilities are intact. Prior to admission patient lived home with his Minnie and functioned independently. Patient informed me he is able to care for his own ADLs. Per patient his Machine Maintenance is Dr Clark at the [facility]. I informed patient he has a ss consult to transfer to [facility]. Patient agrees to transfer and wants to transfer as soon as possible. I informed patient [facility] case management specialist is working on transfer. I informed patient he has a right to speak to a social director regarding all care. I informed patient he has a right to participate in any and all discharge planning. Patient has a POA and advanced directive. Patient verbalized understanding and agreed to discharge plan. Addendum: 01/22/20 at 1629 by Prachi BUCKLEY Amended: Links added.
[2020-01-22 17:00] VITALS: BP 95/49
--- NOTE | 2020-01-22 21:50 | NUR ---
RECIEVED CALL FROM CLARE WITH [facility], UPDATED HER ON PATIENT COVID RESULTS STILL PENDING AT THIS TIME.
[2020-01-22 22:00] VITALS: BP 87/60
[2020-01-22] MEDS: HYDROcodone-ACET 10/325MG TAB PO PRN (22:00)
--- NOTE | 2020-01-22 22:05 | NUR ---
SPOKE WITH PATIENT ABOUT POSSIBLY BEING TRANSFERRED TONIGHT TO WITH [facility], PATIENT STATES "I AM NOT GOING THERE". PATIENT INSISTS HE IS TO BE TRANSFERRED TO [facility].
--- NOTE | 2020-01-23 02:00 | NUR ---
MADE CALL TO [employer], NO ANSWER AT THIS TIME. Addendum: 01/23/20 at 0249 by Misti Givens RN COVID 19 RESULTS ARE NEGATIVE
[2020-01-23 05:00] VITALS: BP 90/58
[2020-01-23] MEDS: FUROSEMIDE 40 MG/4 ML VIAL IV SCH (06:00)
[2020-01-23 06:19] LABS: BUN/Creatinine Ratio 19.8; Calcium 8.9 mg/dL (8.5-10.1); Potassium 3.2 mmol/L (3.5-5.1)
[2020-01-23] MEDS: PREGABALIN 25 MG CAP PO SCH ×2 (06:47→14:31)
[2020-01-23] MEDS: ACCU-CHEK COMFORT CURVE STRIP VI SCH ×2 (06:47→11:30)
[2020-01-23] MEDS: InsuLIN REG 1unit/0.01ml Soln (100units/ml) SC SCH ×2 (06:47→11:30)
[2020-01-23] MEDS: Ensure HIGH Protein Chocolate 8oz Bottle PO SCH (08:00)
--- NOTE | 2020-01-23 08:50 | NUR ---
Called Elan at [facility] transport and spoke with him regarding the transfer and stated they needed the COVID results and express to him that I had just faxed it to him, express that it was negative, stated they will start working on getting a bed.
--- NOTE | 2020-01-23 09:00 | NUR ---
Called Mr. Ayala and spoke with him regarding him being transferred to [facility], stated that [facility] wanted him to go there, because they felt it would be better for his medical condition regarding his heart. Stated that he understood after we talked and he was okay with going, and had no further questions from me and appreciated the call.
[2020-01-23] MEDS: cefTRIAXone 1GM/50ML D5W 50 ML IV SCH (09:21)
[2020-01-23 09:22] VITALS: BP 93/59
[2020-01-23] MEDS: DOBUTamine 1000MCG/ML 250 ML IV SCH (09:22)
[2020-01-23] MEDS: guaiFENesin-DM 100/10mg/5ml SYR PO PRN (09:22)
[2020-01-23] MEDS: CLOPIDOGREL BISULFATE 75 MG TAB PO SCH (09:23)
[2020-01-23] MEDS: POTASSIUM CHL 20 Meq TABLET PO SCH (09:23)
[2020-01-23] MEDS: ASPirin 81 mg TAB PO SCH (09:23)
[2020-01-23] MEDS: CARVEDILOL 3.125 MG TAB PO SCH (09:23)
[2020-01-23] MEDS: SPIRONOLACTONE 25 MG TAB PO SCH (09:23)
[2020-01-23] MEDS: POTASSIUM EFFERVESENT TAB 25 MEQ PO SCH (09:24)
[2020-01-23] MEDS: metOLazone 5 MG TAB PO SCH (09:24)
[2020-01-23] MEDS: SACUBITRIL-VALSARTAN 24mg/26mg TAB PO SCH (09:24)
[2020-01-23] MEDS: MAGNESIUM OXIDE 400 MG TAB PO SCH (09:25)
--- NOTE | 2020-01-23 11:05 | NUR ---
Called [facility] and spoke with Minnie wallis and stated they were still reviewing the clinicals that were faxed this morning and could not give authorization for today, explain that he is suppose to be transferred per there request to day to [facility].
[2020-01-23] MEDS ORDERED: Glucerna Carbsteady SHAKE Vanilla 8oz PO SCH (12:00)
--- NOTE | 2020-01-23 12:36 | NUR ---
Nutrition Followup Notes Pt wt is 80.8 kg Pt was alert and oriented, sitting in chair at time of rounds. Pt reports following the [employer] diet for the last six years. Pt reports he does not eat animal products besides egg whites. Pt reports his appetite is good. Po intake is adequate aeb pt with avg po intake of 82% x 2 days per Rn note. Pt to receive Glucerna shakes no chocolate per pt. Est Energy needs: 9385-4664 kcals (20-23 kcal/kgBW) Est Protein needs: 64-80 gms/day (0.8-1.0 gm/kgBW) Will continue to monitor and reassess prn. LABS: Na 127L, Alb 3.4WNL, BUN 23H GI: Pt had 1 BM on 01/20 per RN doc BS: 21 low risk Refer to wound assessment report for full details. PES: Altered nutrition related lab values r/t current medical condition aeb hypokalemia, elev RFTs, hyperglycemia Comments Will continue to monitor PO status, skin status, pertinent labs and weight trends. Will f/u in 3-5 days. 1) Continue to carefully monitor pt PO intake to meet at least 75% of meals 2) Continue current plan of care
--- NOTE | 2020-01-23 14:35 | NUR ---
PER CM (A.D.) PT ACCEPTED AT [facility]- [id number] MCINTYRE REPORT TO BE CALLED: [phone] PER CM- [facility] WILL CONTACT FOR TRANSPORT SET UP.
--- NOTE | 2020-01-23 14:36 | NUR ---
Received a call from Ifeoma at [facility] states the patient has a bed, RM 6912, the accepting md will be Dr Vela and the number to call report is [phone]. Stated for me to call and get transportation for the patient, but I informed her that she needs to call [facility] and made them aware because it is a [facility] patient and they arrange their own transportation for the patient.
--- NOTE | 2020-01-23 14:45 | NUR ---
Called [facility] and spoke with [employer] production control analyst, informed him that, Marshall from [facility] had called and stated the patient has a bed at [facility] Room [address] Dr Vela, and the number to call for report is [phone], stated he will give the information to [facility] for the patient, stated that we need them to arrange transportation for the patient, Gave him call back information if needed.
--- NOTE | 2020-01-23 15:00 | NUR ---
Received a call from Vita KIM at [facility], gave verbal report update on the patient, stated she is arranging transport for the patient. Gave call back information for the unit the patient is on Room 278B [phone] ext [phone].
--- NOTE | 2020-01-23 17:05 | NUR ---
REPORT GIVEN TO MONTANA MAK AT [facility]. ALL QUESTIONS AND CONCERNS ADDRESSED. PT AWARE OF TRANSFER AND DESTINATION. PT IN AGREEMENT.
--- NOTE | 2020-01-23 17:48 | NUR ---
DISCHARGE INSTRUCTIONS PROVIDED TO PT. PT AWARE AND IN AGREEMENT WITH TRANSFER ORDERS. EDUCATIONAL MATERIAL PROVIDED TO PT. PT VERBALIZED UNDERSTANDING FOR TRANSFER ORDERS TO [facility]. ALL QUESTIONS AND CONCERNS ADDRESSED. TELE BOX REMOVED AND RETURNED TO TELE DEPT. REPORT OF PT STATUS GIVEN TO [facility] [employer]. ALL QUESTIONS AND CONCERNS ADDRESSED.
--- NOTE | 2020-01-23 17:56 | NUR ---
PT TRANSPORTED OUT OF UNIT VIA GURNEY.
== END 2020-01-23 18:00 | disposition short-term general hospital (02) | DRG 280 ==
LOC: EDBD 12:33 → ER 12:33 → TELE 12:34 → TELE-WESTW 01-15 15:41 → UNDODISIN 01-22 07:31
PROVIDERS: ADMIT Internal Medicine; ATTEND Internal Medicine
PROC: 4A023N7 Measurement of Cardiac Sampling and Pressure, Left Heart, Percutaneous Approach (ICD-10-PCS; principal; 2020-01-15)
PROC: B2111ZZ Fluoroscopy of Multiple Coronary Arteries using Low Osmolar Contrast (ICD-10-PCS; 2020-01-15)
PROC: B2131ZZ Fluoroscopy of Multiple Coronary Artery Bypass Grafts using Low Osmolar Contrast (ICD-10-PCS; 2020-01-15)
PROC: B2181ZZ Fluoroscopy of Left Internal Mammary Bypass Graft using Low Osmolar Contrast (ICD-10-PCS; 2020-01-15)
PROC: B2151ZZ Fluoroscopy of Left Heart using Low Osmolar Contrast (ICD-10-PCS; 2020-01-15)
DX: I21.4 Non-ST elevation (NSTEMI) myocardial infarction (principal); J15.0 Pneumonia due to Klebsiella pneumoniae; N17.0 Acute kidney failure with tubular necrosis; I50.23 Acute on chronic systolic (congestive) heart failure; R57.0 Cardiogenic shock; E87.1 Hypo-osmolality and hyponatremia; R65.10 Systemic inflammatory response syndrome (SIRS) of non-infectious origin without acute organ dysfunction; I42.0 Dilated cardiomyopathy; R18.8 Other ascites; I13.0 Hypertensive heart and chronic kidney disease with heart failure and stage 1 through stage 4 chronic kidney disease, or unspecified chronic kidney disease; E87.6 Hypokalemia; I25.10 Atherosclerotic heart disease of native coronary artery without angina pectoris; E66.9 Obesity, unspecified; I25.5 Ischemic cardiomyopathy; R09.02 Hypoxemia; D64.9 Anemia, unspecified; E11.65 Type 2 diabetes mellitus with hyperglycemia; N18.3 Chronic kidney disease, stage 3 (moderate); E11.22 Type 2 diabetes mellitus with diabetic chronic kidney disease; Y84.0 Cardiac catheterization as the cause of abnormal reaction of the patient, or of later complication, without mention of misadventure at the time of the procedure; E78.5 Hyperlipidemia, unspecified; J20.9 Acute bronchitis, unspecified; I25.2 Old myocardial infarction; Z95.5 Presence of coronary angioplasty implant and graft; Z95.1 Presence of aortocoronary bypass graft; Z95.810 Presence of automatic (implantable) cardiac defibrillator; Z68.24 Body mass index [BMI] 24.0-24.9, adult; Z80.9 Family history of malignant neoplasm, unspecified; Z82.49 Family history of ischemic heart disease and other diseases of the circulatory system; Z88.8 Allergy status to other drugs, medicaments and biological substances; Y92.89 Other specified places as the place of occurrence of the external cause; Z20.828 Contact with and (suspected) exposure to other viral communicable diseases
CPT/HCPCS: 36415; 71045; 80048; 80053; 80061; 80307; 81001; 82962; 83036; 83735; 83880; 84132; 84443; 84484; 85025; 85610; 85652; 85730; 87070; 87077; 87186; 87205; 93005; 93306; 93459; 94640; 99152; 99153; 99291; G0378; J0696; J1815; J2001; J2250; J2405; J3480